=== PATIENT | female | born 1985 | race Caucasian/White ===

== ENCOUNTER → 2018-02-22 | Outpatient (CLI) | payer OTHER ==
[~2018-02-22] MED LIST: BIOTIN1 MG PO; CALCIUM 500 +1 EAC2 PO; CYAN500 PO; FLONASE ALLERG9.9 ML NS; IBUP800 PO; IRON150C PO; MULVITMIND PO; OMEP20ER PO; OXYACE5T PO; SERT50; Toviaz4 MG PO; Verotin-Gr Cap1 EACH PO; Zofran Odt4 MG SL
== END | disposition home or self-care (01) ==
LOC: LAB 12:07 → LAB SHORT 12:07
DX: N75.1 Abscess of Bartholin's gland (principal)
CPT/HCPCS: 87070; 87075; 87205

== ENCOUNTER → 2019-03-28 | Outpatient (CLI) | payer OTHER | END | disposition home or self-care (01) | LOC: LAB SHORT 12:28 → LAB 12:28 | DX: J02.9 Acute pharyngitis, unspecified (principal) | CPT/HCPCS: 87081 ==

== ENCOUNTER → 2024-11-02 | Outpatient (CLI) | payer OTHER ==
[~2024-11-02] MED LIST changes: +ARMODAFINIL250 MG PO
== END | disposition home or self-care (01) ==
LOC: LAB SHORT 18:00 → LAB 18:00
PROVIDERS: Family Medicine
DX: Z12.4 Encounter for screening for malignant neoplasm of cervix (principal)
CPT/HCPCS: 87624; G0145